=== PATIENT | female | born 1940 | race Caucasian/White ===

== ENCOUNTER → 2023-11-01 11:59 | Outpatient (REF) | payer OTHER, SELFPAY | LOC: PAVMRI 11:59 | PROVIDERS: ATTENDING PHYSICIAN Neurological Surgery; FAMILY PHYSICIAN Internal Medicine Geriatric Medicine | DX: D32.9 Benign neoplasm of meninges, unspecified (principal); G60.9 Hereditary and idiopathic neuropathy, unspecified; R53.83 Other fatigue; G62.9 Polyneuropathy, unspecified; E03.9 Hypothyroidism, unspecified; M85.80 Other specified disorders of bone density and structure, unspecified site; M81.0 Age-related osteoporosis without current pathological fracture; G95.9 Disease of spinal cord, unspecified | CPT/HCPCS: 70553; 72156; A9575 ==

== ENCOUNTER → 2023-11-23 06:28 | Day surgery (SDC) | payer OTHER, SELFPAY | LOC: GI 06:28 | PROVIDERS: ATTENDING PHYSICIAN Internal Medicine; FAMILY PHYSICIAN Internal Medicine Geriatric Medicine | DX: Z12.11 Encounter for screening for malignant neoplasm of colon (principal); K64.9 Unspecified hemorrhoids; K57.30 Diverticulosis of large intestine without perforation or abscess without bleeding; D12.2 Benign neoplasm of ascending colon; D12.0 Benign neoplasm of cecum; D12.3 Benign neoplasm of transverse colon; D12.5 Benign neoplasm of sigmoid colon; Z86.010 Personal history of colon polyps | CPT/HCPCS: 45385; 45380; 88305 ==

== ENCOUNTER → 2024-02-21 10:51 | Outpatient (REF) | payer OTHER, SELFPAY | LOC: WDC 10:51 | PROVIDERS: ATTENDING PHYSICIAN Obstetrics & Gynecology Gynecology; FAMILY PHYSICIAN Internal Medicine Geriatric Medicine | DX: Z12.31 Encounter for screening mammogram for malignant neoplasm of breast (principal) | CPT/HCPCS: 77063; 77067 ==

== ENCOUNTER → 2024-09-03 08:28 | Outpatient (REF) | payer MEDICARE, SELFPAY ==
[2024-09-03 09:38] LABS: % Basophils 0.9 % (0-2); % Eosinophils 2.9 % (0-6); % Immature Granulocytes 0.2 % (0-0.5); % Lymphocytes 18.1 % (20.5-51.1); % Monocytes 9.3 % (1.7-9.3); % Neutrophils 68.6 % (42.2-75.2); Absolute Basophils 0.1 10^3/uL (0-0.2); Absolute Eosinophils 0.2 10^3/uL (0-0.7); Absolute Lymphocytes 1.2 10^3/uL (1.2-3.4); Absolute Monocytes 0.6 10^3/uL (0.1-0.6); Absolute Neutrophils 4.4 10^3/uL (1.4-6.5); Hematocrit 46.6 % (37.0-47.0); Hemoglobin 15.3 g/dL (12.0-16.0); Mean Corp Hgb Conc. 32.8 g/dL (33.0-37.0); Mean Corpuscular Hgb 31.7 pg (27.0-31.0); Mean Corpuscular Volume 96.7 fL (81.0-99.0); Mean Platelet Volume 10.1 fL (7.4-10.4); Nucleated Red Blood Cells % 0 %; Platelet Count 229 10^3/uL (130-400); Red Blood Cell Count 4.82 10^6/uL (4.20-5.40); White Blood Cell Count 6.5 10^3/uL (4.8-10.8)
[2024-09-03 09:43] LABS: Urine Albumin Negative (Neg - Trace); Urine Bilirubin Negative (Negative); Urine Character Clear (Clear); Urine Color Yellow; Urine Glucose Negative (Negative); Urine Ketone Negative (Negative); Urine Leukocyte 1+ (Negative); Urine Nitrite Negative (Negative); Urine Occult Blood Negative (Negative); Urine Specific Gravity 1.015 (<1.030); Urine Urobilinogen Negative (Neg - 1+); Urine pH 6.5 (5.0-9.0)
[2024-09-03 09:51] LABS: Urine Bacteria Few (Negative); Urine Red Blood Cell 0-2 /HPF (0-2)
[2024-09-03 10:07] LABS: ALT (SGPT) 19 U/L (0-35); AST (SGOT) 27 U/L (14-36); Albumin 4.5 g/dl (3.5-5.0); Alkaline Phosphatase 54 U/L (38-126); Blood Urea Nitrogen 17 mg/dl (7-17); Calcium 9.1 mg/dl (8.4-10.2); Carbon Dioxide 30 mmol/L (22-30); Chloride 103 mmol/L (98-107); Glucose 95 mg/dl (70-99); HDL Cholesterol 78 mg/dl; LDL Cholesterol, Calculated 122 mg/dl; Potassium 4.1 mmol/L (3.5-5.1); Sodium 143 mmol/L (135-145); Total Bilirubin 0.8 mg/dl (0.2-1.3); Total Cholesterol 220 mg/dl (50-199); Total Protein 6.6 g/dl (6.3-8.2); Triglyceride 101 mg/dl (10-149); Very Low Density Lipoprotein 20 mg/dl (0-30); eGFR > 60.00
[2024-09-03 10:23] LABS: Vitamin D, 25-OH*** 44.9 ng/mL (30-80)
== END ==
LOC: REG 08:28
PROVIDERS: ATTENDING PHYSICIAN Internal Medicine Geriatric Medicine
DX: D32.9 Benign neoplasm of meninges, unspecified (principal); I10 Essential (primary) hypertension; E78.5 Hyperlipidemia, unspecified; G60.9 Hereditary and idiopathic neuropathy, unspecified; R53.83 Other fatigue; M25.551 Pain in right hip; M16.0 Bilateral primary osteoarthritis of hip; R73.9 Hyperglycemia, unspecified; E03.9 Hypothyroidism, unspecified; Z13.31 Encounter for screening for depression; E55.9 Vitamin D deficiency, unspecified; G95.9 Disease of spinal cord, unspecified; N76.0 Acute vaginitis
CPT/HCPCS: 36415; 80053; 80061; 81003; 81015; 82306; 85025

== ENCOUNTER → 2024-12-05 13:50 | Outpatient (REF) | payer MEDICARE, SELFPAY | LOC: PAVMRI 13:50 | PROVIDERS: ATTENDING PHYSICIAN Neurological Surgery; FAMILY PHYSICIAN Internal Medicine Geriatric Medicine | DX: D32.9 Benign neoplasm of meninges, unspecified (principal) | CPT/HCPCS: 70553; A9575 ==

== ENCOUNTER → 2025-02-25 10:42 | Outpatient (REF) | payer MEDICARE, SELFPAY | LOC: WDC 10:42 | PROVIDERS: ATTENDING PHYSICIAN Obstetrics & Gynecology Gynecology | DX: Z12.31 Encounter for screening mammogram for malignant neoplasm of breast (principal) | CPT/HCPCS: 77063; 77067 ==

== ENCOUNTER → 2025-04-09 07:58 | Outpatient (REF) | payer MEDICARE, SELFPAY ==
[2025-04-09 09:45] LABS: HDL Cholesterol 69 mg/dl; LDL Cholesterol, Calculated 108 mg/dl; Very Low Density Lipoprotein 25 mg/dl (0-30)
== END ==
LOC: REG 07:58
PROVIDERS: ATTENDING PHYSICIAN Internal Medicine Geriatric Medicine
DX: Z00.00 Encounter for general adult medical examination without abnormal findings (principal); I10 Essential (primary) hypertension; E78.5 Hyperlipidemia, unspecified; G60.9 Hereditary and idiopathic neuropathy, unspecified; R53.83 Other fatigue; M25.551 Pain in right hip; M16.0 Bilateral primary osteoarthritis of hip; R73.9 Hyperglycemia, unspecified; G62.9 Polyneuropathy, unspecified; E03.9 Hypothyroidism, unspecified; Z13.31 Encounter for screening for depression; M25.522 Pain in left elbow; N76.0 Acute vaginitis; M85.80 Other specified disorders of bone density and structure, unspecified site; M81.0 Age-related osteoporosis without current pathological fracture; G95.9 Disease of spinal cord, unspecified; E55.9 Vitamin D deficiency, unspecified
CPT/HCPCS: 36415; 80061

== ENCOUNTER → 2025-09-01 07:54 | Outpatient (REF) | payer MEDICARE, SELFPAY ==
[2025-09-01 08:49] LABS: Hematocrit 47.0 % (37.0-47.0); Hemoglobin 15.1 g/dL (12.0-16.0); Mean Corp Hgb Conc. 32.1 g/dL (33.0-37.0); Mean Corpuscular Volume 97.5 fL (81.0-99.0); Nucleated Red Blood Cells % 0 %; Platelet Count 225 10^3/uL (130-400); Red Cell Dist. Width 12.9 % (11.5-14.5)
[2025-09-01 08:56] LABS: Urine Character Clear (Clear)
[2025-09-01 09:06] LABS: Urine Red Blood Cell 0-2 /HPF (0-2); Urine Squamous Cell >30 /LPF (Few)
[2025-09-01 09:32] LABS: ALT (SGPT) 25 U/L (0-35); AST (SGOT) 33 U/L (14-36); Albumin 4.6 g/dl (3.5-5.0); Alkaline Phosphatase 53 U/L (38-126); Blood Urea Nitrogen 13 mg/dl (7-17); Calcium 9.3 mg/dl (8.4-10.2); Carbon Dioxide 30 mmol/L (22-30); Chloride 105 mmol/L (98-107); Glucose 96 mg/dl (70-99); HDL Cholesterol 70 mg/dl; LDL Cholesterol, Calculated 115 mg/dl; Potassium 4.1 mmol/L (3.5-5.1); Sodium 140 mmol/L (135-145); Total Protein 6.8 g/dl (6.3-8.2); Very Low Density Lipoprotein 24 mg/dl (0-30); eGFR > 60.00
[2025-09-01 09:37] LABS: Vitamin D, 25-OH*** 44.7 ng/mL (30-80)
[2025-09-01 09:50] LABS: TSH 2.05 uIU/ml (0.47-4.68)
== END ==
LOC: REG 07:54
PROVIDERS: ATTENDING PHYSICIAN Internal Medicine Geriatric Medicine
DX: I10 Essential (primary) hypertension (principal); E78.5 Hyperlipidemia, unspecified; E03.9 Hypothyroidism, unspecified; Z79.899 Other long term (current) drug therapy
CPT/HCPCS: 36415; 80053; 80061; 81003; 81015; 82306; 84443; 85025